=== PATIENT | female | born 1965 | race African-American/Black ===

== ENCOUNTER 2018-03-12 09:00 | Emergency (ER) | payer OTHER ==
[2018-03-12 09:27] LABS: Absolute Lymphocytes (CBC) 1.3 K/uL (0.7-4.9); Absolute Monocytes 0.6 K/uL (0.1-1.3); Absolute Neutrophil 6.1 K/uL (1.8-8.0); Basophils % 0.7 % (0-1.3); Eosinophils % 0.3 % (0-4.4); Hematocrit 41.6 % (36.0-45.0); Lymphocytes % 16.3 % (15.3-44.8); MPV 9.3 fL (7.6-11.3); RBC Red Blood Cell Count 4.53 M/uL (3.86-4.86)
[2018-03-12 09:59] LABS: Protime INR 1.28
[2018-03-12 10:30] LABS: Albumin 3.1 g/dL (3.4-5.0); Bilirubin Direct 0.3 mg/dL (0-0.2); Bilirubin Total 0.6 mg/dL (0.2-1.0); Potassium 3.7 mmol/L (3.5-5.1); Protein, Total 8.1 g/dL (6.4-8.2)
[2018-03-12] MEDS ORDERED: NITROGLYCERIN 1 GM PKT TD ONE (10:33)
[2018-03-12 10:43] LABS: Troponin (Emerg Dept Use Only) 1.56 ng/mL (0.0-0.045)
--- NOTE | 2018-03-12 10:58 | RAD REPORT ---
EXAM DESCRIPTION: RAD - Chest Single View - 03/12/2018 9:31 am CLINICAL HISTORY: CHEST PAIN Chest pain. COMPARISON: CHEST SINGLE VIEW dated 02/02/2011; CHEST SINGLE VIEW dated 02/01/2011; CHEST SINGLE VIE W dated 01/31/2011 FINDINGS: Portable technique limits examination quality. Mild interstitial pulmonary edema is seen. The heart is significantly enlarged in size with a single lead pacer/ defibrillator device present. No displaced fractures. IMPRESSION: Mild CHF versus volume overload pattern.
[2018-03-12] MEDS ORDERED: ASPIRIN 81 MG CHEWABLE TABLET ONE (11:00)
[2018-03-12] MEDS ORDERED: ONDANSETRON 4 MG/2 ML VIAL ONE (11:42)
[2018-03-12] MEDS ORDERED: MORPHINE 4 MG/ML SYR ONE (11:42)
--- NOTE | 2018-03-12 11:57 | EKG ---
Test Date: 2018-03-12 Test Time: 09:16:40 Termite Treater: KM MEASUREMENT RESULTS: Intervals: Rate: 85 [place]: 184 QRSD: 98 QT: 390 QTc: 464 [place]: P: 50 [place]: 184 QRS: 9 T: 118 INTERPRETIVE STATEMENTS: Normal sinus rhythm Possible Left atrial enlargement ST & T wave abnormality, consider lateral ischemia Prolonged QT Abnormal ECG Compared to ECG 01/31/2011 15:53:58 ST (T wave) deviation now present Left ventricular hypertrophy no longer present Electronically Signed On 03-12-18 11:57:41 PRESETTER OPERATOR by Oz Philip
[2018-03-12] MEDS ORDERED: CLOPIDOGREL 75 MG TABLET ONE (12:12)
[2018-03-12] MEDS ORDERED: ENOXAPARIN 100 MG/ML SYR SQ ONE (12:12)
--- NOTE | 2018-03-12 12:56 | EDPHYS ---
Physician Documentation [facility] Name: Citlalli Philip Age: 52 yrs Sex: Female : 1965 Arrival Date: 03/12/2018 Time: 09:02 Bed 19 Private MD: ED Physician Mark Flores HPI: 03/12 10:22 This 52 yrs old Black Female presents to ER via Ambulatory with complaints of Chest kb Pain. 10:22 The patient or guardian reports chest pain that is located primarily in the anterior kb chest wall, left. Onset: at 07:30. The pain radiates to the left arm, the left shoulder. Associated signs and symptoms: Pertinent positives: cough, nausea, shortness of breath, vomiting, Pertinent negatives: abdominal pain, diaphoresis, dizziness, headache, lower extremity pain, lower extremity swelling, lightheadedness, near syncope, palpitations, recent travel, syncope. The chest pain is described as aching. Duration: The patient or guardian reports a single episode, that is still ongoing. Modifying factors: The symptoms are alleviated by nothing. the symptoms are aggravated by nothing. Severity of pain: At its worst the pain was moderate in the emergency department the pain is unchanged. The patient has not experienced similar symptoms in the past. The patient has not recently seen a physician. 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 - Social history:: Smoking status: Patient/guardian denies using tobacco, Patient/guardian denies using alcohol. - Ebola Screening: : Patient negative for fever greater than or equal to 101.5 degrees Fahrenheit, and additional compatible Ebola Virus Disease symptoms Patient denies exposure to infectious person Patient denies travel to an Ebola-affected area in the 21 days before illness onset. ROS: 10:19 Constitutional: Negative for fever, chills, and weight loss, Back: Negative for injury kb and pain, MS/Extremity: Negative for injury and deformity, Skin: Negative for injury, rash, and discoloration, Neuro: Negative for headache, weakness, numbness, tingling, and seizure. 10:19 Cardiovascular: Positive for chest pain, Negative for edema, orthopnea, palpitations, paroxysmal nocturnal dyspnea. 10:19 Respiratory: Positive for cough, Negative for dyspnea on exertion, hemoptysis, orthopnea, pleurisy, shortness of breath, sputum production, wheezing. 10:19 Abdomen/GI: Positive for nausea and vomiting, Negative for abdominal pain. Exam: 10:19 Head/Face: Normocephalic, atraumatic. Chest/axilla: Normal chest wall appearance and kb motion. Nontender with no deformity. No lesions are appreciated. Cardiovascular: Regular rate and rhythm with a normal S1 and S2. No gallops, murmurs, or rubs. Normal PMI, no JVD. No pulse deficits. Respiratory: Lungs have equal breath sounds bilaterally, clear to auscultation and percussion. No rales, rhonchi or wheezes noted. No increased work of breathing, no retractions or nasal flaring. Abdomen/GI: Soft, non-tender, with normal bowel sounds. No distension or tympany. No guarding or rebound. No evidence of tenderness throughout. Skin: Warm, dry with normal turgor. Normal color with no rashes, no lesions, and no evidence of cellulitis. MS/ Extremity: Pulses equal, no cyanosis. Neurovascular intact. Full, normal range of motion. Neuro: Awake and alert, GCS 15, oriented to person, place, time, and situation. Cranial nerves II-XII grossly intact. Motor strength 5/5 in all extremities. Sensory grossly intact. Cerebellar exam normal. Normal gait. 10:19 Constitutional: The patient appears alert, awake, uncomfortable. Vital Signs: 09:06 BP 145 / 114; Pulse 85; Resp 18; Temp 96.6(TE); Pulse Ox 100% on R/A; Weight 113.4 kg; hj Height 5 ft. 11 in. (180.34 cm); Pain 10/10; 09:23 BP 153 / 112; Pulse 83; Resp 16; Pulse Ox 99% on R/A; bp 10:46 BP 143 / 102; Pulse 79; Resp 19; Pulse Ox 99% ; bp 11:52 BP 139 / 91; Pulse 76; Resp 16; Pulse Ox 97% ; bp 12:53 BP 126 / 88; Pulse 64; Resp 20; Pulse Ox 92% on R/A; bp 09:06 Body Mass Index 34.87 (113.40 kg, 180.34 cm) hj MDM: 09:15 Patient medically screened. kb 10:22 Data reviewed: vital signs, nurses notes. Data interpreted: Pulse oximetry: on room air kb is 99 %. Interpretation: normal. 11:36 The patient was given aspirin in the Emergency Department. ED course: Pt given the kb option of being admitted here or transferred to [facility] for continuity of care. Pt sees a "team of doctors" at [facility]. Pt prefers to be transferred to see her transport technician, Dr Rdz.. 12:54 Counseling: I had a detailed discussion with the patient and/or guardian regarding: the kb historical points, exam findings, and any diagnostic results supporting the discharge/admit diagnosis, lab results, radiology results, the need to transfer to another facility. ED course: Discussed history, exam and diagnostics with Dr Edmondson at [facility]. Accepts pt to acute telemetry. 03/12 09:15 Order name: Basic Metabolic Panel; Complete Time: 10:47 kb 03/12 09:15 Order name: CBC with Diff; Complete Time: 09:30 kb 03/12 09:15 Order name: LFT's; Complete Time: 10:47 kb 03/12 09:15 Order name: Magnesium; Complete Time: 10:47 kb 03/12 09:15 Order name: NT PRO-BNP; Complete Time: 10:47 kb 03/12 09:15 Order name: PT-INR; Complete Time: 10:24 kb 03/12 09:15 Order name: Troponin (emerg Dept Use Only); Complete Time: 10:47 kb 03/12 09:15 Order name: XRAY Chest (1 view); Complete Time: 11:04 kb 03/12 09:13 Order name: EKG; Complete Time: 09:13 hj 03/12 09:15 Order name: Cardiac monitoring; Complete Time: 09:22 kb 03/12 09:15 Order name: EKG - Nurse/Tech; Complete Time: 09:22 kb 03/12 09:15 Order name: IV Saline Lock; Complete Time: 09:22 kb 03/12 09:15 Order name: Labs collected and sent; Complete Time: 09:22 kb 03/12 09:15 Order name: O2 Per Protocol; Complete Time: :22 kb 03/12 09:15 Order name: O2 Sat Monitoring; Complete Time: : kb Administered Medications: 10:31 Drug: Nitro-Bid Ointment 2 % 0.5 inches Route: Transdermal; Site: anterior chest wall; bp 10:55 Drug: Aspirin Chewable Tablet 324 mg Route: PO; bp 10:55 Follow up: Response: No adverse reaction bp 11:20 Drug: morphine 4 mg Route: IVP; Site: right antecubital; bp 11:51 Follow up: Response: Pain is decreased bp 11:20 Drug: Zofran 4 mg Route: IVP; Site: right antecubital; bp 11:51 Follow up: Response: No adverse reaction bp 12:00 Drug: Lovenox 1 mg/kg Route: Sub-Q; Site: right lower abdomen; bp 13:57 Follow up: Response: No adverse reaction bp 12:00 Drug: PlaVIX 300 mg Route: PO; bp 13:57 Follow up: Response: No adverse reaction bp Disposition: 03/12/18 12:55 Transfer ordered to [facility]. Diagnosis is Non-ST elevation (NSTEMI) myocardial infarction. - Reason for transfer: Higher level of care. - Accepting physician is Delvis. - Condition is Stable. - Problem is new. - Symptoms have improved. Addendum: 03/13/2018 16:47 Co-signature as Attending Physician, Mark Flores MD I agree with the assessment and k dr plan of care. Signatures: Dispatcher [employer] EDME Glo Law, SOUP MIXER-C SOUP MIXER-Ckb Mark Flores MD MD [facility] Hubert Rutherford, OLGA RN Zach Campoverde RN RN bp Corrections: (The following items were deleted from the chart) 03/12 15:32 12:55 03/12/2018 12:55 Transfer ordered to [facility]. Diagnosis is bp Non-ST elevation (NSTEMI) myocardial infarction. Reason for transfer: Higher level of care. Accepting physician is Delvis. Condition is Stable. Problem is new. Symptoms have improved. kb
--- NOTE | 2018-03-12 12:56 | ER ---
Nurse's Notes 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 Transition of care: patient was not received from another setting of care. Onset of symptoms was March 12, 2018. Risk Assessment: Do you want to hurt yourself or someone else? Patient reports no desire to harm self or others. Initial Sepsis Screen: Does the patient meet any 2 criteria? No. Patient's initial sepsis screen is negative. Does the patient have a suspected source of infection? No. Patient's initial sepsis screen is negative. Care prior to arrival: None. 09:02 Method Of Arrival: Ambulatory 09:02 Acuity: SHANIA 3 hj Triage Assessment: 09:07 General: Appears in no apparent distress. uncomfortable, Behavior is cooperative, hj appropriate for age, anxious. Pain: Complains of pain in chest Pain radiates to back and left arm Pain currently is 10 out of 10 on a pain scale. Cardiovascular: Reports chest pain. 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 - Social history:: Smoking status: Patient/guardian denies using tobacco, Patient/guardian denies using alcohol. - Ebola Screening: : Patient negative for fever greater than or equal to 101.5 degrees Fahrenheit, and additional compatible Ebola Virus Disease symptoms Patient denies exposure to infectious person Patient denies travel to an Ebola-affected area in the 21 days before illness onset. Screenin:07 Abuse screen: Denies threats or abuse. Denies injuries from another. Nutritional hj screening: No deficits noted. Tuberculosis screening: No symptoms or risk factors identified. Fall Risk None identified. Assessment: 09:08 Pain: Pain began 2 hours ago. hj 09:15 General: Appears distressed, uncomfortable, obese, Behavior is cooperative, appropriate bp for age, anxious. Pain: Complains of pain in neck and left arm and chest Pain currently is 10 out of 10 on a pain scale. Pain: Pain radiates to left arm and neck. Neuro: Level of Consciousness is awake, alert, obeys commands, Oriented to person, place, time, situation, Appropriate for age. Cardiovascular: Rhythm is sinus rhythm. Respiratory: Airway is patent Respiratory effort is even, unlabored, Respiratory pattern is regular, symmetrical. GI: No signs and/or symptoms were reported involving the gastrointestinal system. : No signs and/or symptoms were reported regarding the genitourinary system. EENT: No deficits noted. Derm: No deficits noted. Musculoskeletal: Circulation, motion, and sensation intact. Range of motion: intact in all extremities. 10:55 Reassessment: PT TO BE ADMITTED, SOME RELIEF OF S/S. bp 11:51 Reassessment: PT REQUESTING TRANSFER FOR CONTINUITY OF CARE, VS STABLE ON MONITOR. bp 12:52 Reassessment: TENRIISM TRANSFER IN PROCESS, VS STABLE ON MONITOR. bp 14:09 Reassessment: REPORT TO REGLA ESPINOZA FOR [facility] 903. TRANSPORT PENDING. bp Vital Signs: 09:06 BP 145 / 114; Pulse 85; Resp 18; Temp 96.6(TE); Pulse Ox 100% on R/A; Weight 113.4 kg; Height 5 ft. 11 in. (180.34 cm); Pain 10/10; 09:23 BP 153 / 112; Pulse 83; Resp 16; Pulse Ox 99% on R/A; bp 10:46 BP 143 / 102; Pulse 79; Resp 19; Pulse Ox 99% ; bp 11:52 BP 139 / 91; Pulse 76; Resp 16; Pulse Ox 97% ; bp 12:53 BP 126 / 88; Pulse 64; Resp 20; Pulse Ox 92% on R/A; bp 09:06 Body Mass Index 34.87 (113.40 kg, 180.34 cm) ED Course: 09:02 Patient arrived in ED. hj 09:04 Triage completed. hj 09:05 Zach Xiong, RN is Primary Nurse. bp 09:08 Arm band placed on right wrist. hj 09:08 Patient has correct armband on for positive identification. Placed in gown. Bed in low hj position. Call light in reach. Side rails up X 1. Adult w/ patient. hall monitor on. Pulse ox on. NIBP on. 09:08 Patient maintains SpO2 saturation greater than 95% on room air. hj 09:15 Glo Law FNP-C is PHCP. kb 09:15 Mark Flores MD is Attending Physician. kb 09:23 Inserted saline lock: 20 gauge in right antecubital area, using aseptic technique. bp Blood collected. 09:24 EKG done, by insulator technician. reviewed by Mark Flores MD. sm3 09:27 X-ray completed. Portable x-ray completed in exam room. Patient tolerated procedure jb2 well. 09:32 XRAY Chest (1 view) In Process Unspecified. EDMS Administered Medications: 10:31 Drug: Nitro-Bid Ointment 2 % 0.5 inches Route: Transdermal; Site: anterior chest wall; bp 10:55 Drug: Aspirin Chewable Tablet 324 mg Route: PO; bp 10:55 Follow up: Response: No adverse reaction bp 11:20 Drug: morphine 4 mg Route: IVP; Site: right antecubital; bp 11:51 Follow up: Response: Pain is decreased bp 11:20 Drug: Zofran 4 mg Route: IVP; Site: right antecubital; bp 11:51 Follow up: Response: No adverse reaction bp 12:00 Drug: Lovenox 1 mg/kg Route: Sub-Q; Site: right lower abdomen; bp 13:57 Follow up: Response: No adverse reaction bp 12:00 Drug: PlaVIX 300 mg Route: PO; bp 13:57 Follow up: Response: No adverse reaction bp Outcome: 12:55 ER care complete, transfer ordered by . kb 15:32 Patient left the ED. bp Signatures: Dispatcher [employer] EDMS Glo Law FNP-C FNP-Ckb Buechter, Jesse jb2 Hubert Rutherford RN RN hj Peltier, Brian, RN RN bp Amarilis Pedroza sm3 Corrections: (The following items were deleted from the chart) 09:08 09:06 Pulse 85bpm; Resp 18bpm; Pulse Ox 100% RA; Temp 96.6F Temporal; 113.4 kg; Height hj 5 ft. 11 in.; BMI: 34.8; Pain 10/; hj
== END 2018-03-12 15:32 | disposition short-term general hospital (02) ==
LOC: ER 09:00
DX: I21.4 Non-ST elevation (NSTEMI) myocardial infarction (principal); I10 Essential (primary) hypertension; I50.9 Heart failure, unspecified; N19 Unspecified kidney failure; Z88.8 Allergy status to other drugs, medicaments and biological substances
CPT/HCPCS: 36415; 71045; 80048; 80076; 83735; 83880; 84484; 85025; 85610; 93005; 96372; 96374; 96375; 99285; J1650; J2405